=== PATIENT | female | born 1955 | race African-American/Black ===

== ENCOUNTER → 2018-04-16 | Day surgery (SDC) | payer MEDICARE, OTHER ==
[~2018-04-16] MED LIST: BUPIVACAINE 0.5%/EPI 30 ML SDV INJ ONE; CEFAZOLIN SOD 2 GM/D5W 50ML 50 ML IV ONE; DEXAMETHASONE SOD PHOS INJ 4 MG/ML VIAL ONE; FENTANYL CITRATE/PF 100MCG/2 ML INJ ONE; KETOROLAC TROMETHAMINE 30 MG/ML VIAL ONE; LIDOCAINE HCL 2% LOCAL INJ 5 ML SDV VIAL INJ ONE; MIDAZOLAM HCL 2 MG/2 ML VIAL ONE; ONDANSETRON HCL INJ 2 MG/ML VIAL ONE; PROPOFOL IV EMULSION 10 MG/ML 20 ML VIAL ONE; SEVOFLURANE INHAL SOLN 250 ML PEN BTL ONE
--- NOTE | 2018-04-17 14:59 | Operative Report ---
DATE OF PROCEDURE: April 16, 2018 PREOPERATIVE DIAGNOSES 1. Left knee medial meniscus tear. 2. Left knee degenerative joint disease of the knee. POSTOPERATIVE DIAGNOSES 1. Left knee medial meniscus tear. 2. Left knee degenerative joint disease of the knee. PROCEDURES PERFORMED 1. Left knee examination under anesthesia. 2. Left knee arthroscopy. 3. Left knee partial medial meniscectomy. 4. Left knee chondroplasties of the patella, the trochlea, the medial femoral condyle, medial tibial plateau, the lateral femoral condyle and lateral tibial plateau. 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 ANESTHESIA: General endotracheal intubation anesthesia. IV FLUIDS: Per the anesthesia record. DESCRIPTION OF PROCEDURE: Ms. Ward was taken to the operating room and placed in the supine position on the operating room table. Following induction of general anesthesia as well as endotracheal intubation, the patient's left lower extremity was examined under anesthesia. She had a mild effusion within the knee joint but an otherwise ligamentously stable knee. Patient's lower extremity was prepped and draped in the standard surgical fashion. A 2-portal technique was used to provide this patient arthroscopic evaluation of the knee joint. Examination of the suprapatellar pouch and medial and lateral gutters found no evidence of loose bodies. There was, however, evidence of chondromalacia of the patellar and trochlear surfaces. The scope was then advanced into the medial compartment. Examination of the medial compartment demonstrated a torn medial meniscus. A combination of biting forceps and motorized shaver were used to resect the torn portion of the meniscus. Chondroplasties of the medial femoral condyle and medial tibial plateau were performed at this time. The scope was then advanced into the intercondylar notch. Anterior cruciate ligament was identified and found to be intact. Scope was advanced into the lateral compartment, and there was some generalized fraying of the lateral meniscus but no discrete tear. There was chondromalacia of the articulating surfaces. A shaver was used to provide the patient chondroplasties of the lateral femoral condyle and lateral tibial plateau. The fraying of the meniscus was also debrided at this time. The scope was then placed in the suprapatellar pouch, and chondroplasties of the patella and trochlea were performed. The knee was deflated of its sterile normal saline. Each of the portal sites were closed using 4-0 nylon suture. The portal sites as well as the knee itself were injected with 0.5% Marcaine with epinephrine. Sterile dressings were applied. The patient was awakened and taken to the postanesthesia care unit in stable condition. Job#: [id number]
== END | disposition home or self-care (01) ==
LOC: OR 07:10
PROVIDERS: ATTEND Specialist
DX: S83.222A Peripheral tear of medial meniscus, current injury, left knee, initial encounter (principal); S83.262A Peripheral tear of lateral meniscus, current injury, left knee, initial encounter; M22.42 Chondromalacia patellae, left knee; M17.12 Unilateral primary osteoarthritis, left knee; S63.521A Sprain of radiocarpal joint of right wrist, initial encounter; X58.XXXA Exposure to other specified factors, initial encounter; Z01.810 Encounter for preprocedural cardiovascular examination; Z68.31 Body mass index [BMI] 31.0-31.9, adult
CPT/HCPCS: 29881; 93005; J1100; J1885; J2001; J2250; J2405